=== PATIENT | female | born 1990 | race African-American/Black ===

== ENCOUNTER 2017-05-28 21:07 | Emergency (ER) | payer OTHER ==
[~2017-05-28] VITALS: Ht 165.1 cm; Wt 54.0 kg
--- NOTE | 2017-05-28 21:21 | Emergency Room Report ---
History of Present Illness General Chief Complaint: Pelvic Pain Source: Patient Present Illness HPI Is a 27-year-old female 4, para 0, A3. She is about 2-4 weeks . Confirmed [facility]. She presents with chief complaint abdominal pain to the right lower quadrant for last couple hours. Pain became severe and sharp in the last 30 minutes. Pain is 10 out of 10. No nausea vomiting. No diarrhea. No trauma. No bleeding. Denies any other complaint. Allergies: Coded Allergies: PENICILLINS (Verified Allergy, Unknown, 05/28/17) Patient History Past Medical History: see triage record, old chart reviewed Past Surgical History: none Pertinent Family History: none Social History: Denies: drug use Last Menstrual Period: Now: Yes - 3 weeks Immunizations: other Reviewed Nursing Documentation: PMH: Agreed, PSxH: Agreed Nursing Documentation-PMH Past Medical History: No History, Except For Review of Systems Eye: Denies: blurred vision, eye pain ENT: Denies: ear pain, nose congestion, throat swelling Respiratory: Denies: cough, shortness of breath Cardiovascular: Denies: chest pain, palpitations Gastrointestinal: Reports: abdominal pain, Denies: diarrhea, nausea, vomiting Musculoskeletal: Denies: back pain, joint pain Skin: Denies: rash Neurological: Denies: headache, numbness Endocrine: Denies: increased thirst, increased urine Hematologic/Lymphatic: Denies: easy bruising All Other Systems: negative except mentioned in HPI Physical Exam Vital Signs Date Time Temp Pulse Resp B/P Pulse Ox O2 Delivery O2 Flow Rate FiO2 05/28/17 21:12 83 19 vital is unremarkable Sp02 EP Interpretation: reviewed, normal General Appearance: well appearing, alert, moderate distress - From pain Head: normocephalic, atraumatic Eyes: bilateral eye EOMI, bilateral eye PERRL ENT: hearing grossly normal, normal pharynx Neck: full range of motion, supple, no meningismus Respiratory: chest non-tender, lungs clear, normal breath sounds Cardiovascular #1: regular rate, rhythm, no murmur Gastrointestinal: normal bowel sounds, no mass, no organomegaly, no bruit, non- distended, tenderness - Right lower quadrant/pelvic Musculoskeletal: back normal, gait/station normal, normal range of motion Neurologic: alert, oriented x3 Psychiatric: mood/affect normal Skin: warm/dry Procedures Critical Care Time Critical Care Time Critical care is mandated in this patient who presented with probable ruptured ectopic. Patient require my urgent intervention to attenuate the risks of metabolic collapse which may lead to cardiovascular collapse and . Critical care time is 35 minutes excluding any reportable procedure. Critical care time included evaluation, multiple reevaluation, looking at old charts, interpreting laboratory and diagnostic data, discussing case with patient and family and consultants, and charting. Medical Decision Making Diagnostic Impression: Primary Impression: Ectopic , tubal Qualified Codes: O00.10 - Tubal without intrauterine ER Course Patient presents with acute onset abdominal pain. She is . Finding on ultrasound concerning for ectopic , probable early rupture. Because of this, I will transfer her to [facility] for higher level of care. I discussed the case with INSPECTOR CRYSTAL Dr. Barrett. He agreed with the transfer. Laboratory Tests Test 05/28/17 21:30 05/28/17 22:00 White Blood Count 4.9 K/UL (4.8-10.8) Red Blood Count 3.51 M/UL (4.20-5.40) L Hemoglobin 11.8 G/DL (12.0-16.0) L Hematocrit 36.1 % (37.0-47.0) L Mean Corpuscular Volume 103 FL (80-99) H Mean Corpuscular Hemoglobin 33.6 PG (27.0-31.0) H Mean Corpuscular Hemoglobin Concent 32.7 G/DL (32.0-36.0) Red Cell Distribution Width 12.0 % (11.6-14.8) Platelet Count 238 K/UL (150-450) Mean Platelet Volume 6.9 FL (6.5-10.1) Neutrophils (%) (Auto) 34.6 % (45.0-75.0) L Lymphocytes (%) (Auto) 51.9 % (20.0-45.0) H Monocytes (%) (Auto) 11.4 % (1.0-10.0) H Eosinophils (%) (Auto) 0.8 % (0.0-3.0) Basophils (%) (Auto) 1.3 % (0.0-2.0) Prothrombin Time 9.7 SEC (9.30-11.50) Prothromb Time International Ratio 0.9 (0.9-1.1) Activated Partial Thromboplast Time 28 SEC (23-33) Sodium Level 141 mEQ/L (135-145) Potassium Level 3.9 mEQ/L (3.4-4.9) Chloride Level 101 mEQ/L (98-107) Carbon Dioxide Level 28 mEQ/L (20-30) Anion Gap 12 (5-15) Blood Urea Nitrogen 15 mg/dL (7-23) Creatinine 0.9 mg/dL (0.5-0.9) Estimat Glomerular Filtration Rate > 60 mL/min (>60) Glucose Level 117 mg/dL (74-106) H Calcium Level 9.5 mg/dL (8.6-10.2) Total Bilirubin < 0.2 mg/dL (0.0-1.2) Aspartate Amino Transf (AST/SGOT) 14 U/L (5-40) Alanine Aminotransferase (ALT/SGPT) 12 U/L (3-33) Alkaline Phosphatase 62 U/L (35-104) Total Protein 7.7 g/dL (6.6-8.7) Albumin 4.5 g/dL (3.5-5.2) Globulin 3.2 g/dL Albumin/Globulin Ratio 1.4 (1.0-2.7) Lipase 42 U/L (< 60) Human Chorionic Gonadotropin, Quant 4524 mIU/mL Urine Color Yellow Urine Appearance Clear Urine pH 6.5 (4.5-8.0) Urine Specific Morris 1.020 (1.005-1.035) Urine Protein 2+ (NEGATIVE) H Urine Glucose (UA) Negative (NEGATIVE) Urine Ketones Negative (NEGATIVE) Urine Occult Blood 5+ (NEGATIVE) H Urine Nitrite Negative (NEGATIVE) Urine Bilirubin Negative (NEGATIVE) Urine Urobilinogen 1 MG/DL (0.0-1.0) H Urine Leukocyte Esterase 2+ (NEGATIVE) H Urine RBC 5-10 /HPF (0 - 2) H Urine WBC 5-10 /HPF (0 - 2) H Urine Squamous Epithelial Cells Moderate /LPF (NONE/OCC) H Urine Bacteria Few /HPF (NONE) Urine HCG, Qualitative Positive Lab Results Impression labs unremarkable CT/MRI/US Diagnostic Results CT/MRI/US Diagnostic Results : Imaging Test Ordered: Pelvic ultrasound Impression Read by radiologist. No intrauterine gestational sac seen. Bilateral ovarian color Doppler noted. Small right circular structure adjacent to right ovary. Questionable possible ectopic . Free fluid in the cul-de-sac. Last Vital Signs Date Time Temp Pulse Resp B/P Pulse Ox O2 Delivery O2 Flow Rate FiO2 05/28/17 21:12 83 19 Status: improved [facility] Condition: Stable TESSA BERNAL M.D. May 28, 2017 21:21
[2017-05-28] MEDS ORDERED: Morphine Sulfate 4mg/ml Inj IVP ONE ×2 (21:30→22:30)
[2017-05-28 22:13] LABS: APPEARANCE,URINE CLEAR; KETONES,URINE NEGATIVE (NEGATIVE); LEUKOCYTE ESTERASE ,URINE 2+ (NEGATIVE); NITRITE,URINE NEGATIVE (NEGATIVE); PH,URINE 6.5 (4.5-8.0); PROTEIN,URINE 2+ (NEGATIVE); UROBILINOGEN,URINE 1 MG/DL (0.0-1.0)
[2017-05-28 22:17] LABS: BASOPHILS % (AUTO) 1.3 % (0.0-2.0); EOSINOPHILS % (AUTO) 0.8 % (0.0-3.0); LYMPHOCYTES % (AUTO) 51.9 % (20.0-45.0); MEAN CORPUSCULAR HEMOGLOBIN 33.6 PG (27.0-31.0); MEAN CORPUSCULAR HGB CONC 32.7 G/DL (32.0-36.0); MEAN CORPUSCULAR VOLUME 103 FL (80-99); MEAN PLATELET VOLUME 6.9 FL (6.5-10.1); MONOCYTES % (AUTO) 11.4 % (1.0-10.0); NEUTROPHILS % (AUTO) 34.6 % (45.0-75.0); PLATELET COUNT 238 K/UL (150-450); RED BLOOD COUNT 3.51 M/UL (4.20-5.40); WHITE BLOOD COUNT 4.9 K/UL (4.8-10.8)
[2017-05-28 22:21] LABS: INR 0.9 (0.9-1.1); PROTHROMBIN TIME 9.7 SEC (9.30-11.50)
[2017-05-28 22:30] VITALS: BP 102/61
[2017-05-28 22:31] LABS: ALANINE AMINOTRANSFERASE 12 U/L (3-33); ALBUMIN/GLOBULIN RATIO 1.4 (1.0-2.7); ANION GAP 12 (5-15); ASPARTATE AMINO TRANSFERASE 14 U/L (5-40); CALCIUM 9.5 mg/dL (8.6-10.2); CARBON DIOXIDE 28 mEQ/L (20-30); CHLORIDE 101 mEQ/L (98-107); CREATININE 0.9 mg/dL (0.5-0.9); GLOMERULAR FILTRATION RATE > 60 mL/min (>60); HEMOLYSIS 6; LIPASE 42 U/L (< 60); POTASSIUM 3.9 mEQ/L (3.4-4.9); SODIUM 141 mEQ/L (135-145); TOTAL PROTEIN 7.7 g/dL (6.6-8.7)
[2017-05-28 22:38] LABS: BACTERIA,URINE FEW /HPF; SQUAMOUS EPITHELIAL CELL,UR MODERATE /LPF (NONE/OCC)
[2017-05-29 01:00] VITALS: BP 101/61
[2017-05-29 01:23] VITALS: BP 101/61
--- NOTE | 2017-05-29 14:42 | Diagnostic Imaging Report ---
Indications: Right lower quadrant abdominal pain, vaginal spotting, positive test, LMP 05/04/17 Technique: Transabdominal and transvaginal real-time grayscale and duplex Doppler imaging of the pelvis was performed. Findings: Comparison: None Uterus measures 9.6 x 4.5 x 7cm. It demonstrates normal contour and myometrial echotexture without focal abnormality. The endometrial complex measures 11 mm in diameter. It is unremarkable in appearance without obvious gestational sac or focal abnormality. Small cysts are present the cervix. Small amount of free fluid is present in the cul-de-sac. Right ovary measures 3.6 x 2.7 x 2.2 cm. it contains multiple small peripheral follicles. Duplex Doppler imaging demonstrates normal blood flow. 1.5 cm circumscribed echogenic mass with central hypoechogenicity adjacent to right ovary.. Small amount of adjacent free fluid. Left ovary measures 3.2 x 2.5 x 1.7 cm. It contains multiple small peripheral follicles.. Duplex Doppler imaging demonstrates normal blood flow. No extra-ovarian abnormality is seen. IMPRESSION: 1.5 cm right paraovarian mass as described. Given positive test and no evidence of intrauterine , ectopic must be considered. Recommend serial serum quantitative beta hCG levels. Small amount of free fluid This correlates with [facility] preliminary report.
== END 2017-05-29 01:55 | disposition short-term general hospital (02) ==
LOC: EMR 23:07
DX: O00.10 Tubal pregnancy without intrauterine pregnancy (principal); Z88.0 Allergy status to penicillin
CPT/HCPCS: 36415; 76856; 80053; 81003; 81025; 83690; 84702; 85025; 85610; 85730; 86900; 86901; 96374; 96375; 99291; J2270; J2405